=== PATIENT | female | born 1950 | race Caucasian/White ===

== ENCOUNTER → 2021-11-13 10:22 | Outpatient (BNVA) | payer MEDICARE, SELFPAY | PROVIDERS: PCP Internal Medicine | DX: N20.0 Calculus of kidney (principal) | CPT/HCPCS: 99202 ==

== ENCOUNTER 2022-01-08 15:14 | Outpatient (REF) | payer MEDICARE, SELFPAY ==
--- NOTE | ~2022-01-08 | US_ITS ---
EXAMINATION: US RETROPERITONEAL LIMITED (RENAL ONLY) CLINICAL INFORMATION: Calculus of kidney. COMPARISON: US retroperitoneal limited (renal only) 03/23/2019 and 03/20/2018. XR abdomen KUB 03/05/2018 and 12/11/2017. TECHNIQUE: Real-time imaging of the kidneys. FINDINGS: RIGHT KIDNEY: 10.6 x 4.1 x 6.3 cm (SAG x AP x TRV). The kidney is normal in size, contour, and echogenicity. Renal cortical thickness is normal. No focal parenchymal lesions or hydronephrosis. There are echogenic stones in upper pole measuring 0.3 cm, 0.3 cm and 0.4 cm. No caliectasis seen. LEFT KIDNEY: 10.5 x 5.8 x 4.4 cm (SAG x AP x TRV). The kidney is normal in size, contour, and echogenicity. Renal cortical thickness is normal. No calculi or focal parenchymal lesions. No hydronephrosis. There is mild pelvic fullness. US/US renal BI IMPRESSION: Nonobstructive echogenic calculi upper pole right kidney. No hydronephrosis. There is mild left renal pelvic fullness but no echogenic stones seen.
== END 2022-01-08 15:15 | disposition home or self-care (01) ==
LOC: HO.US 15:14
DX: N20.0 Calculus of kidney (principal)
CPT/HCPCS: 76775

== ENCOUNTER 2022-06-01 12:00 | Outpatient (REF) | payer MEDICARE, SELFPAY ==
--- NOTE | ~2022-06-01 | US_ITS ---
EXAMINATION: US RETROPERITONEAL LIMITED (RENAL ONLY) CLINICAL INFORMATION: Calculus of kidney. COMPARISON: Renal ultrasound 01/08/2022 and 03/23/2019. X-ray KUB 03/05/2018 and 12/11/2017. TECHNIQUE: Real-time imaging of the kidneys. FINDINGS: RIGHT KIDNEY: 10.4 x 3.3 x 5.5 cm (SAG x AP x TRV). The kidney is normal in size, contour, and echogenicity. Renal cortical thickness is normal. No focal parenchymal lesions or hydronephrosis. There are upper pole echogenic stones measuring 0.3 x 0.2 cm and 0.4 x 0.3 cm. There is no focal caliectasis. In addition there are multiple echogenic foci seen. LEFT KIDNEY: 10.9 x 5.5 x 5.0 cm (SAG x AP x TRV). The kidney is normal in size, contour, and echogenicity. Renal cortical thickness is normal. No calculi or focal parenchymal lesions. No hydronephrosis. There is mild pelvic fullness. US/US renal BI IMPRESSION: 1. Nonobstructive echogenic stones upper pole right kidney. 2. There is mild pelvic fullness left kidney.
== END 2022-06-01 12:01 | disposition home or self-care (01) ==
LOC: HO.US 12:00
PROVIDERS: Visit Provider Urology
DX: N20.0 Calculus of kidney (principal)
CPT/HCPCS: 76775

== ENCOUNTER → 2022-06-29 11:10 | Outpatient (BNVA) | payer MEDICARE, SELFPAY | PROVIDERS: PCP Internal Medicine; Visit Provider Nurse Practitioner Family | DX: N20.0 Calculus of kidney (principal); I10 Essential (primary) hypertension | CPT/HCPCS: 99212 ==

== ENCOUNTER 2022-12-12 10:10 | Outpatient (REF) | payer MEDICARE, SELFPAY ==
--- NOTE | ~2022-12-12 | US_ITS ---
EXAMINATION: US RETROPERITONEAL LIMITED (RENAL ONLY) CLINICAL INFORMATION: Calculus of kidney. COMPARISON: Renal ultrasound 06/01/2022 and 01/08/2022. X-ray abdomen KUB 03/05/2018. TECHNIQUE: Real-time imaging of the kidneys. FINDINGS: RIGHT KIDNEY: 10.9 x 3.7 x 5.2 cm (SAG x AP x TRV). The kidney is normal in size, contour, and echogenicity. Renal cortical thickness is normal. No focal parenchymal lesions or hydronephrosis. 3 mm nonobstructing lower pole renal stone not previously seen. Echogenic focus without twinkle artifact or shadowing may reflect a vascular reflector. No definite nephrolithiasis. LEFT KIDNEY: 10.5 x 5.7 x 4.3 cm (SAG x AP x TRV). The kidney is normal in size, contour, and echogenicity. Renal cortical thickness is normal. No calculi or focal parenchymal lesions. Pelviectasis without elsi hydronephrosis. Echogenic focus without twinkle artifact or shadowing may reflect a vascular reflector. No definite nephrolithiasis. US/US renal BI IMPRESSION: 1. 3 mm nonobstructing right lower pole renal stone not previously seen. 2. Left renal pelviectasis without elsi hydronephrosis. No definite left nephrolithiasis.
== END 2022-12-12 10:11 | disposition home or self-care (01) ==
LOC: HO.US 10:10
PROVIDERS: PCP Internal Medicine; Visit Provider Nurse Practitioner Family
DX: N20.0 Calculus of kidney (principal)
CPT/HCPCS: 76775

== ENCOUNTER 2023-01-15 10:20 | Outpatient (AMB) | payer MEDICARE, SELFPAY ==
--- NOTE | 2023-01-15 10:22 | MHC.OFFVIS ---
Intake Intake Visit Reasons: 6m follow up/imaging(set) Intake Note: Patient is present for follow up kidney stones/ultrasound (imaging 12/12/22) Urology Medications: none Blood Thinner: none Family Member Caretaker Required: No Accompanied by: Self / Same As Patient Allergies oxycodone [OXYCODONE] Allergy (Unknown, Verified 01/15/23 11:19) HALLUCINATIONS Medication List - Last Reconciled 01/15/23 by JACINDA Romero amlodipine 5 mg PO DAILY HPI HPI Comments History of Present Illness Details Arely is a pleasant 72-year-old male patient of . She has a past medical history of breast cancer, nephrolithiasis, and hypertension. She presents to the office today for follow-up regarding her nephrolithiasis. When asked patient reports to be doing well. She denies any urinary issues or concerns. When asked she denies flank pain, hematuria, fever, chills, urinary frequency, urinary incontinence, urinary urgency and or dysuria. Recent renal imaging was reviewed with the patient today. 3 mm nonobstructing right lower pole renal stone not previously seen. Left renal pelviectasis without elsi hydronephrosis. No definite left nephrolithiasis. Discussed surveillance imaging. Patient reports she continues drinking adequate amount of fluids daily and adding lemon juice to her water daily. She also reports exercising 4 days a week at a gym in [place] near where she lives. She participates in [employer]. In office urinalysis within normal limits. She otherwise offers no other issues or concerns at this time. [facility] Medical History HTN (hypertension) HX: breast cancer Renal stones Surgical History History of surgery Review of Systems Const All systems reviewed & are unremarkable except as noted in HPI and below Reports no additional complaints Eyes Reports no additional complaints ENT Reports no additional complaints Card Reports no additional complaints Resp Reports no additional complaints GI Reports no additional complaints Reports as per HPI Musc Reports no additional complaints Neuro Reports no additional complaints Psych Reports no additional complaints Endo Reports no additional complaints Lars/Lymph Reports no additional complaints Aller/Immun Reports no additional complaints Physical Exam Const General: cooperative, healthy appearing, comfortable, no acute distress, well developed, alert and awake Nutritional Appearance: average body habitus and well nourished Orientation/consciousness: patient oriented x3 Limitations: no limitations HEENT Head: Yes normal to inspection, Yes normocephalic and Yes atraumatic Eyes General: appearance normal, both eyes and all related structures Neck Neck: Yes normal visual inspection and Yes trachea midline Chest Chest palpation & inspection: normal inspection of the chest Resp Effort & Inspection: normal respiratory effort and able to speak in complete sentences Cardio Rate: regular rate GI Inspection: Yes normal to inspection General: Yes no CVA tenderness Back/Spine/Pelvis Back: no CVA tenderness Skin General skin exam: no rashes or lesions noted Neuro General: patient oriented x3 Psych Appearance: grossly normal and well kempt Mental Status: mental status grossly normal Speech and movement: Normal speech and movement present and Clear speech present Affect: normal affect Attitude: cooperative Thought content: Normal thought content present Insight: Good insight present (Psych) Judgement: Good judgement present (Psych) Results AMB Urinalysis, Automated UA Leukoctes 0 Milady/uL Last Edit by [employer] on 01/15/23 10:42 UA Nitrite Last Edit by [employer] on 01/15/23 10:42 UA Urobilinogen 0.2 mg/dL Last Edit by [employer] on 01/15/23 10:42 UA Protein 15 mg/dL Last Edit by [employer] on 01/15/23 10:42 UA pH 0 Last Edit by [employer] on 01/15/23 10:42 UA Blood 0 Emerson/uL Last Edit by [employer] on 01/15/23 10:42 UA Specific [place] 1.020 Last Edit by [employer] on 01/15/23 10:42 UA Ketone Last Edit by [employer] on 01/15/23 10:42 UA Bilirubin 0 mg/dL Last Edit by [employer] on 01/15/23 10:42 UA Glucose 0 mg/dL Last Edit by [employer] on 01/15/23 10:42 Results Reviewed Results Reviewed: Laboratory Last Values Urine pH (Auto) 0 01/15/23 10:23 Specific [place] (Auto) 1.020 01/15/23 10:23 Urine Protein (Auto) 15 mg/dL 01/15/23 10:23 Glucose (UA)(Auto) 0 mg/dL 01/15/23 10:23 Urine Blood (Auto) 0 Emerson/uL 01/15/23 10:23 Urine Bilirubin (Auto) 0 mg/dL 01/15/23 10:23 Urine Urobilinogen (Auto) 0.2 mg/dL 01/15/23 10:23 Leukocyte Esterase (Auto) 0 Milady/uL 01/15/23 10:23 Date of Service: 12/12/22 EXAMINATION: US RETROPERITONEAL LIMITED (RENAL ONLY) FINDINGS: RIGHT KIDNEY: 10.9 x 3.7 x 5.2 cm (SAG x AP x TRV). The kidney is normal in size, contour, and echogenicity. Renal cortical thickness is normal. No focal parenchymal lesions or hydronephrosis. 3 mm nonobstructing lower pole renal stone not previously seen. Echogenic focus without twinkle artifact or shadowing may reflect a vascular reflector. No definite nephrolithiasis. LEFT KIDNEY: 10.5 x 5.7 x 4.3 cm (SAG x AP x TRV). The kidney is normal in size, contour, and echogenicity. Renal cortical thickness is normal. No calculi or focal parenchymal lesions. Pelviectasis without elsi hydronephrosis. Echogenic focus without twinkle artifact or shadowing may reflect a vascular reflector. No definite nephrolithiasis. IMPRESSION: 1.? 3 mm nonobstructing right lower pole renal stone not previously seen. 2.? Left renal pelviectasis without elsi hydronephrosis. No definite left nephrolithiasis. Assessment & Plan Assessment & Plan (1) Renal stones: Code(s): N20.0 - Calculus of kidney Plan In office urinalysis; within normal limits. Patient denies any urinary issues or concerns at this time; as noted above Recent renal imaging reviewed with the patient; stable; as noted above. Discussed, educated, instructed on the importance of continuing to drink adequate amount of fluid daily. Renal imaging in one year; surveillance Follow-up in office in 1 year with imaging to be completed prior; or sooner with any issues, concerns, and or questions. Orders: Orders US renal BI 364 Days N20.0 - Calculus of kidney AMB Urinalysis Automated Today Z13.9 - Encounter for screening, unspecified Patient Instructions: The patient had an opportunity to ask questions regarding the treatment plan. All questions were answered. Physical exam, labs, and imaging were discussed and reviewed in detail. As well as risks, benefits, and discussion of treatment choices. No major barriers to understanding were identified. The patient expressed understanding and agreement with the above treatment plan. The patient was made aware they should contact our office by phone for worsening of their current condition, the appearance of new symptoms, or with any questions or concerns. Compliance is encouraged with any medications and follow up testing that is ordered. It is a privilege to be allowed the opportunity to participate in? your urological care.? Again, if you have any questions or concerns If you have any questions or concerns please do not hesitate to contact me. The office is [phone]. This note is constructed using voice recognition software. While every effort has been made to ensure accuracy manager testing errors may have been included. Yours sincerely, JACINDA Romero Coding Level of Care Code Est Pt Level 3 (95532) Diagnoses Renal stones N20.0
== END 2023-01-15 11:11 | disposition home or self-care (01) ==
PROVIDERS: PCP Internal Medicine; Visit Provider Nurse Practitioner Family
DX: N20.0 Calculus of kidney (principal); Z13.9 Encounter for screening, unspecified
CPT/HCPCS: 99213

== ENCOUNTER → 2023-01-15 10:20 | Outpatient (BNVA) | payer MEDICARE, SELFPAY | PROVIDERS: Visit Provider Nurse Practitioner Family | DX: N20.0 Calculus of kidney (principal) | CPT/HCPCS: 81003; 99212 ==

== ENCOUNTER 2024-02-03 07:45 | Outpatient (REF) | payer MEDICARE, SELFPAY ==
--- NOTE | ~2024-02-03 | US_ITS ---
EXAMINATION: US RETROPERITONEAL LIMITED (RENAL ONLY) CLINICAL INFORMATION: Calculus of kidney. COMPARISON: Renal ultrasound 12/12/2022 and 06/01/2022. X-ray abdomen KUB 03/05/2018 and 12/11/2017. TECHNIQUE: Real-time imaging of the kidneys. FINDINGS: RIGHT KIDNEY: 10.8 x 3.5 x 5.8 cm (SAG x AP x TRV). The kidney is normal in size, contour, and echogenicity. Renal cortical thickness is normal. Lower pole 4 mm echogenic focus present consistent with a nonobstructing calculus. No hydronephrosis. 2 benign Bosniak class I renal cysts are noted, the largest at the upper pole measuring 1.3 cm which require no additional imaging or follow-up. No solid renal masses are seen. LEFT KIDNEY: 10.0 x 6.0 x 6.3 cm (SAG x AP x TRV). The kidney is normal in size, contour, and echogenicity. Renal cortical thickness is normal. There is a lower pole echogenic focus seen consistent with nonobstructing calculus. No hydronephrosis. Multiple parapelvic benign Bosniak class I renal cysts are noted, the largest measuring 2.4 cm which require no additional imaging or follow-up. No solid renal masses are seen. US/US renal BI IMPRESSION: Bilateral nonobstructing renal calculi. Electronically signed by: Papo Arzola MD 02/05/2024 05:04 PM EDT
== END 2024-02-03 07:46 | disposition home or self-care (01) ==
LOC: HO.US 07:45
PROVIDERS: Visit Provider Nurse Practitioner Family
DX: N20.0 Calculus of kidney (principal)
CPT/HCPCS: 76775

== ENCOUNTER 2024-03-17 10:20 | Outpatient (AMB) | payer MEDICARE, SELFPAY ==
--- NOTE | 2024-03-17 10:32 | MHC.OFFVIS ---
Intake Visit Reasons: 6m follow up/imaging(set) Intake Note: Patient presents today for follow up on: kidney stones and ultrasound results Imaging Completed: 02/03/24 Urology Medications: none Blood Thinner: none State Director Required: No Accompanied by: Self / Same As Patient Allergies oxycodone [OXYCODONE] Allergy (Unknown, Verified 03/17/24 10:40) HALLUCINATIONS HPI Comments Details: Arely is a pleasant 73-year-old male patient of . She has a past medical history of breast cancer, nephrolithiasis, and hypertension. She presents to the office today for follow-up regarding her nephrolithiasis. When asked patient reports to be doing well. She denies any urinary issues or concerns. Recent renal imaging results reviewed with the patient today. Right kidney with lower pole 4 mm echogenic focus present and consistent with nonobstructing renal calculi. No hydronephrosis. Two benign Bosniak class 1 renal cysts noted largest measuring a proximally 1.3 cm which requires no additional follow-up per radiology report. Left kidney with lower pole echogenic focus. No hydronephrosis. Multiple peripelvic benign Bosniak class 1 renal cysts are noted the largest measuring 2.4 cm which require no follow-up imaging per radiology report. No solid renal masses noted bilaterally. When asked she denies urinary urgency, urinary frequency, incontinence, nocturia, hematuria, dysuria, foul smelling urine, changes to urinary stream, flank pain, fever, and or chills. She is happy with her current voiding parameters. Patient reports she continues drinking adequate amount of fluids daily and adding lemon juice to her water daily. She also reports exercising 4 days a week at a gym in [place] near where she lives. She participates in [employer]. In office urinalysis within normal limits. She otherwise offers no other issues or concerns at this time. [facility] Medical History HX: breast cancer HTN (hypertension) Renal stones Surgical History History of surgery Review of Systems Const All systems reviewed & are unremarkable except as noted in HPI and below Reports no additional complaints Eyes Reports no additional complaints ENT Reports no additional complaints Card Reports no additional complaints Resp Reports no additional complaints GI Reports no additional complaints Reports as per HPI Musc Reports no additional complaints Neuro Reports no additional complaints Psych Reports no additional complaints Endo Reports no additional complaints Lars/Lymph Reports no additional complaints Aller/Immun Reports no additional complaints Physical Exam Const General: cooperative, healthy appearing, comfortable, no acute distress, well developed, alert and awake Nutritional Appearance: average body habitus and well nourished Orientation/consciousness: patient oriented x3 Limitations: no limitations HEENT Head: Yes normal to inspection, Yes normocephalic and Yes atraumatic Eyes General: appearance normal, both eyes and all related structures Neck Neck: Yes normal visual inspection and Yes trachea midline Chest Chest palpation & inspection: normal inspection of the chest Resp Effort & Inspection: normal respiratory effort and able to speak in complete sentences Cardio Rate: regular rate GI Inspection: Yes normal to inspection General: Yes no CVA tenderness Back/Spine/Pelvis Back: no CVA tenderness Skin General skin exam: no rashes or lesions noted Neuro General: patient oriented x3 Psych Appearance: grossly normal and well kempt Mental Status: mental status grossly normal Speech and movement: Normal speech and movement present and Clear speech present Affect: normal affect Attitude: cooperative Thought content: Normal thought content present Insight: Good insight present (Psych) Judgement: Good judgement present (Psych) Results AMB Urinalysis, Automated UA Leukoctes 0 Milady/uL Last Edit by [employer] on 03/17/24 10:48 UA Nitrite Last Edit by [email or web address] on 03/17/24 10:48 UA Urobilinogen 0.2 mg/dL Last Edit by [email or web address] on 03/17/24 10:48 UA Protein 15 mg/dL Last Edit by [email or web address] on 03/17/24 10:48 UA pH 6.0 Last Edit by [email or web address] on 03/17/24 10:48 UA Blood 10 Emerson/uL Last Edit by [employer] on 03/17/24 10:48 UA Specific [place] 1.030 Last Edit by [employer] on 03/17/24 10:48 UA Ketone Last Edit by [employer] on 03/17/24 10:48 UA Bilirubin 0 mg/dL Last Edit by [employer] on 03/17/24 10:48 UA Glucose 0 mg/dL Last Edit by [employer] on 03/17/24 10:48 Results Reviewed Results Reviewed: Date of Service: 02/03/24 EXAMINATION: US RETROPERITONEAL LIMITED (RENAL ONLY) FINDINGS: RIGHT KIDNEY: 10.8 x 3.5 x 5.8 cm (SAG x AP x TRV). The kidney is normal in size, contour, and echogenicity. Renal cortical thickness is normal. Lower pole 4 mm echogenic focus present consistent with a nonobstructing calculus. No hydronephrosis. 2 benign Bosniak class I renal cysts are noted, the largest at the upper pole measuring 1.3 cm which require no additional imaging or follow-up. No solid renal masses are seen. LEFT KIDNEY: 10.0 x 6.0 x 6.3 cm (SAG x AP x TRV). The kidney is normal in size, contour, and echogenicity. Renal cortical thickness is normal. There is a lower pole echogenic focus seen consistent with nonobstructing calculus. No hydronephrosis. Multiple parapelvic benign Bosniak class I renal cysts are noted, the largest measuring 2.4 cm which require no additional imaging or follow-up. No solid renal masses are seen. IMPRESSION: Bilateral nonobstructing renal calculi. Assessment & Plan Assessment & Plan (1) Renal stones: Code(s): N20.0 - Calculus of kidney Category: Medical (2) Renal cyst: Code(s): N28.1 - Cyst of kidney, acquired Category: Medical Plan In office urinalysis results reviewed with the patient today; as noted above. Patient denies any urinary issues or concerns at this time; as noted above Recent renal imaging reviewed with the patient; stable; as noted above. Discussed, educated, instructed on the importance of continuing to drink adequate amount of fluid daily. She reports be happy with current voiding parameters. Continue adding 1 oz of lemon juice to water daily. Discussed at length potential causes of nephrolithiasis as well as renal cysts Will obtain renal ultrasound in 1 year. Follow-up in office in 1 year with imaging to be completed prior; or sooner with any issues, concerns, and or questions. Orders: Orders AMB Urinalysis Automated Today Z13.9 - Encounter for screening, unspecified US renal BI 1 Year N20.0 - Calculus of kidney Patient Instructions: The patient had an opportunity to ask questions regarding the treatment plan. All questions were answered. Physical exam, labs, and imaging were discussed and reviewed in detail. As well as risks, benefits, and discussion of treatment choices. No major barriers to understanding were identified. The patient expressed understanding and agreement with the above treatment plan. The patient was made aware they should contact our office by phone for worsening of their current condition, the appearance of new symptoms, or with any questions or concerns. Compliance is encouraged with any medications and follow up testing that is ordered. It is a privilege to be allowed the opportunity to participate in? your urological care.? Again, if you have any questions or concerns If you have any questions or concerns please do not hesitate to contact me. The office is [phone]. This note is constructed using voice recognition software. While every effort has been made to ensure accuracy art consultant errors may have been included. Yours sincerely, JACINDA Romero Coding Level of Care Code Est Pt Level 3 (44062) Complex EM visit Add On G2211 Diagnoses Renal stones N20.0 Renal cyst N28.1
== END 2024-03-17 11:01 | disposition home or self-care (01) ==
LOC: HO.HUSH 10:21
PROVIDERS: PCP Internal Medicine; Visit Provider Nurse Practitioner Family
DX: N20.0 Calculus of kidney (principal); N28.1 Cyst of kidney, acquired; Z13.9 Encounter for screening, unspecified
CPT/HCPCS: 99213; G2211

== ENCOUNTER 2024-03-17 10:20 | Outpatient (REF) | payer MEDICARE, SELFPAY ==
[2024-03-17 17:13] LABS: Urine Cytology See Pathology rpt
== END 2024-03-17 10:21 | disposition home or self-care (01) ==
LOC: HO.LNP 10:20
PROVIDERS: PCP Internal Medicine; Visit Provider Nurse Practitioner Family
DX: Z13.9 Encounter for screening, unspecified (principal); N20.0 Calculus of kidney; N28.1 Cyst of kidney, acquired
CPT/HCPCS: 81003; 88112; 99212

== ENCOUNTER 2025-03-08 10:31 | Outpatient (REF) | payer MEDICARE, SELFPAY ==
--- NOTE | ~2025-03-08 | US_ITS ---
CLINICAL HISTORY: N20.0 - Calculus of kidney US Renal Comparison: US/AL/SR - US KIDNEY BILATERAL - 02/03/24 08:04 EDT Findings: Right kidney normal size and echotexture, 10.7 cm length. There are small renal cysts. 3 mm echogenic focus in the lower pole. Left kidney normal size and echotexture, 10.1 cm length. 4 mm echogenic focus of the lower pole. There is fullness of the left renal pelvis. Normal color Doppler IMPRESSION: Bilateral renal calculi. Pelviectasis of the left kidney. This document has been electronically signed by: Leland Jacobo MD on 03/09/2025 13:33:41
== END 2025-03-08 10:32 | disposition home or self-care (01) ==
LOC: HO.US 10:31
PROVIDERS: PCP Internal Medicine; Visit Provider Nurse Practitioner Family
DX: N20.0 Calculus of kidney (principal)
CPT/HCPCS: 76775

== ENCOUNTER → 2025-03-08 10:32 | Outpatient (BNV) | payer MEDICARE, SELFPAY | PROVIDERS: PCP Internal Medicine; Visit Provider Nuclear Medicine | DX: N20.0 Calculus of kidney (principal) | CPT/HCPCS: 76775 ==

== ENCOUNTER 2025-03-17 10:23 | Outpatient (AMB) | payer MEDICARE, SELFPAY ==
--- NOTE | 2025-03-17 10:24 | A.OFFVIS_ITS ---
Intake Visit Reasons: 1y/US Intake Note: Patient is present for 1Y/US Urology Medication:NONE Antibiotic Allergy:NONE Blood Thinner:NONE [employer]ger Required: No Allergies oxycodone (OXYCODONE) Allergy (Unknown, Verified 03/17/25 11:04) HALLUCINATIONS Medication List - Last Reconciled 03/17/25 by JACINDA Romero amlodipine 5 mg PO DAILY HPI Comments Details: Arely is a pleasant 74-year-old male patient of . She has a past medical history of breast cancer, nephrolithiasis, and hypertension. She presents to the office today for follow-up regarding her nephrolithiasis. When asked patient reports to be doing well. She denies any urinary issues or concerns. Recent renal imaging results reviewed with the patient today. 03/13 bilateral kidneys are normal in size and echotexture. Bilateral renal calculi noted. No hydronephrosis noted bilaterally. When asked she denies urinary urgency, urinary frequency, incontinence, nocturia, hematuria, dysuria, foul smelling urine, changes to urinary stream, flank pain, fever, and or chills. She is happy with her current voiding parameters. Patient reports she continues drinking adequate amount of fluids daily and adding lemon juice to her water daily. She also reports exercising 4 days a week at a gym in [place] near where she lives. She participates in [email or web address]. In office urinalysis within normal limits. She otherwise offers no other issues or concerns at this time. [facility] Medical History HX: breast cancer HTN (hypertension) Renal stones Surgical History History of surgery Review of Systems Const All systems reviewed & are unremarkable except as noted in HPI and below Physical Exam Const General: cooperative, healthy appearing, comfortable, no acute distress, well developed, alert and awake Nutritional Appearance: average body habitus and well nourished Orientation/consciousness: patient oriented x3 Limitations: no limitations HEENT Head: Yes normal to inspection, Yes normocephalic and Yes atraumatic Eyes General: appearance normal, both eyes and all related structures Neck Neck: Yes normal visual inspection and Yes trachea midline Chest Chest palpation & inspection: normal inspection of the chest Resp Effort & Inspection: normal respiratory effort and able to speak in complete sentences Cardio Rate: regular rate GI Inspection: Yes normal to inspection General: Yes no CVA tenderness Back/Spine/Pelvis Back: no CVA tenderness Skin General skin exam: no rashes or lesions noted Neuro General: patient oriented x3 Psych Appearance: grossly normal and well kempt Mental Status: mental status grossly normal Speech and movement: Normal speech and movement present and Clear speech present Affect: normal affect Attitude: cooperative Thought content: Normal thought content present Insight: Good insight present (Psych) Judgement: Good judgement present (Psych) Results AMB Urinalysis, Automated UA Leukoctes 0 Milady/uL Last Edit by ZAIRA Connelly on 03/17/25 10:40 UA Nitrite Negative Last Edit by Irasema Hager CCM on 03/17/25 10:40 UA Urobilinogen 0.2 mg/dL Last Edit by Irasema Hager CCM on 03/17/25 10:4 0 UA Protein 15 mg/dL Last Edit by Irasema Hager [facility] on 03/17/25 10:40 UA pH 7.0 Last Edit by Irasema Hager [facility] on 03/17/25 10:40 UA Blood 10 Emerson/uL Last Edit by Irasema Hager CCM on 03/17/25 10:40 UA Specific Atlantic 1.010 Last Edit by Irasema Hager [facility] on 03/17/25 10: 40 UA Ketone Negative Last Edit by Irasema Hager CCM on 03/17/25 10:40 UA Bilirubin 0 mg/dL Last Edit by Irasema Hager [facility] on 03/17/25 10:40 UA Glucose 0 mg/dL Last Edit by Irasema Hager [facility] on 03/17/25 10:40 Results Reviewed Results Reviewed: Laboratory Last Values Urine pH (Auto) 7.0 03/17/25 10:39 Specific Atlantic (Auto) 1.010 03/17/25 10:39 Urine Protein (Auto) 15 mg/dL 03/17/25 10:39 Glucose (UA)(Auto) 0 mg/dL 03/17/25 10:39 Urine Ketones (Auto) Negative 03/17/25 10:39 Urine Blood (Auto) 10 Emerson/uL 03/17/25 10:39 Urine Nitrite (Auto) Negative 03/17/25 10:39 Urine Bilirubin (Auto) 0 mg/dL 03/17/25 10:39 Urine Urobilinogen (Auto) 0.2 mg/dL 03/17/25 10:39 Leukocyte Esterase (Auto) 0 Milady/uL 03/17/25 10:39 Date of Service: 03/08/25 Procedure(s): US renal BI Findings: Right kidney normal size and echotexture, 10.7 cm length. There are small renal cysts. 3 mm echogenic focus in the lower pole. Left kidney normal size and echotexture, 10.1 cm length. 4 mm echogenic focus of the lower pole. There is fullness of the left renal pelvis. Normal color Doppler IMPRESSION: Bilateral renal calculi. Pelviectasis of the left kidney. Assessment & Plan Assessment & Plan (1) Renal stones: Code(s): N20.0 - Calculus of kidney Category: Medical (2) Renal cyst: Code(s): N28.1 - Cyst of kidney, acquired Category: Medical Plan In office urinalysis results reviewed with the patient today; as noted above. Patient denies any urinary issues or concerns at this time; as noted above Recent renal imaging reviewed with the patient; stable; as noted above. Discussed, educated, instructed on the importance of continuing to drink adequate amount of fluid daily. She reports be happy with current voiding parameters. Continue adding 1 oz of lemon juice to water daily. Discussed at length potential causes of nephrolithiasis as well as renal cysts Will obtain renal ultrasound in 1 year. Follow-up in office in 1 year with imaging to be completed prior; or sooner with any issues, concerns, and or questions. Orders: Orders AMB Urinalysis Automated Today Z13.9 - Encounter for screening, unspecified Urine Cytology Today R31.29 - Other microscopic hematuria US renal BI 1 Year N20.0 - Calculus of kidney Patient Instructions: The patient had an opportunity to ask questions regarding the treatment plan. All questions were answered. Physical exam, labs, and imaging were discussed and reviewed in detail. As well as risks, benefits, and discussion of treatment choices. No major barriers to understanding were identified. The patient expressed understanding and agreement with the above treatment plan. The patient was made aware they should contact our office by phone for worsening of their current condition, the appearance of new symptoms, or with any questions or concerns. Compliance is encouraged with any medications and follow up testing that is ordered. It is a privilege to be allowed the opportunity to participate in? your urological care.? Again, if you have any questions or concerns If you have any questions or concerns please do not hesitate to contact me. The office is [phone]. This note is constructed using voice recognition software. While every effort has been made to ensure accuracy road sign installer errors may have been included. Yours sincerely, JACINDA Romero Coding Level of Care Code Est Pt Level 3 (95068) Complex EM visit Add On G2211 Diagnoses Renal stones N20.0 Renal cyst N28.1
== END 2025-03-17 11:08 | disposition home or self-care (01) ==
LOC: HO.HUSH 10:23
PROVIDERS: PCP Internal Medicine; Visit Provider Nurse Practitioner Family
DX: N20.0 Calculus of kidney (principal); N28.1 Cyst of kidney, acquired; Z13.9 Encounter for screening, unspecified
CPT/HCPCS: 99213; G2211

== ENCOUNTER 2025-03-17 10:23 | Outpatient (REF) | payer MEDICARE, SELFPAY | END 2025-03-17 10:24 | disposition home or self-care (01) | LOC: HO.LAB 10:23 | PROVIDERS: PCP Internal Medicine; Visit Provider Nurse Practitioner Family | DX: N20.0 Calculus of kidney (principal); N28.1 Cyst of kidney, acquired; R31.29 Other microscopic hematuria; Z13.89 Encounter for screening for other disorder | CPT/HCPCS: 81003; 88112; 99212 ==